=== PATIENT | male | born 1985 | race African-American/Black ===

== ENCOUNTER → 2020-02-08 | Outpatient (CLI) | payer OTHER ==
--- NOTE | 2020-02-08 15:40 | RAD ---
EXAM: CT Abdomen and Pelvis without IV contrast CLINICAL HISTORY: HX DOUBLE MESH HERNIA REPAIR ABD PAIN COMPARISON: none TECHNIQUE: Helical CT of the abdomen and pelvis was performed without the administration of IV contrast. Axial, coronal and sagittal reformatted images were generated. ---PQRS compliance statement - One or more of the following individualized dose reduction techniques were utilized for this study: 1. Automated exposure control 2. Adjustment of the mA and/or kV according to patient size 3. Use of iterative reconstruction technique--- FINDINGS: Lack of intravenous contrast limits evaluation of solid organs, vasculature, and lymph nodes. Lower chest: Lung bases are clear. Abdomen and pelvis: Liver and biliary system: Hepatic hypoattenuation likely fatty liver. Gallbladder is normal. No biliary ductal dilatation. Spleen: Unremarkable Pancreas: Unremarkable Adrenal glands: Unremarkable Kidneys: No renal tract calculus. No hydronephrosis. No hydroureter. Bladder wall thickening likely cystitis. Lymph nodes/retroperitoneum: No abdominal or pelvic lymphadenopathy. Vessels: Aorta is normal in caliber. Bowel/Peritoneal cavity: Moderate to large volume colonic stool content is seen. No small or large bowel dilatation. No bowel obstruction. No abdominal or pelvic ascites. Abdominal wall: Infiltration and metallic densities are seen along the right inguinal canal from prior surgical change. Bladder: Mild bladder wall thickening may represent cystitis. Bones: No aggressive osseous lesion is seen. IMPRESSION: 1. Postsurgical changes in the right inguinal region likely from prior hernia repair. No associated right inguinal hernia is identified. 2. No small or large bowel dilatation to suggest bowel obstruction. 3. Hepatic hypoattenuation, likely fatty liver. Electronically signed by: Ney Francisco MD (02/08/2020 3:37 PM) [id number]
== END ==
LOC: EDUNIT# 13:00 → CT 13:09
PROVIDERS: ATTEND Nurse Practitioner Family
DX: R10.9 Unspecified abdominal pain (principal); Z87.19 Personal history of other diseases of the digestive system
CPT/HCPCS: 74176

== ENCOUNTER → 2020-02-08 | Outpatient (CLI) | payer OTHER | LOC: LAB 13:22 | PROVIDERS: ATTEND Nurse Anesthetist, Certified Registered | DX: Z01.818 Encounter for other preprocedural examination (principal); K21.9 Gastro-esophageal reflux disease without esophagitis; Z20.828 Contact with and (suspected) exposure to other viral communicable diseases | CPT/HCPCS: U0003 ==

== ENCOUNTER → 2020-02-14 | Day surgery (SDC) | payer OTHER ==
[~2020-02-14] MED LIST: ALBU2.5V8 IH; IBUP400T99 PO; IPRATRPIUM/ALBUTEROL 0.5/2.5MG 3 ML NEBU. NEB PRN; IV RINGERS SOLUTION,LACTATED 1,000 ML IV SCH; LIDOCAINE 2% PF 5 ML VIAL. ONE; LOSA1TAB22 PO; MIDAZOLAM HCL PF 2 MG/2 ML VIAL. IV ONE; ONDANSETRON PF 4 MG/2 ML VIAL. IV PRN; PANT40TA6 PO; PROPOFOL 10,000 MCG/ML (20ML) VIAL IV ONE; SERT50TA PO
[2020-02-14 11:14] VITALS: BP 161/87
--- NOTE | 2020-02-16 20:05 | PATHOLOGY ---
[facility] Accession Number: [id number] . 01 Material submitted: . PART A: stomach - GASTRIC BIOPSY FOR H. PYLORI PART B: esophagus - DISTAL ESOPHAGUS FOR REFLUX. Modifiers: distal . 01 Clinical history: . GERD, HEMORRHOIDS . 02 Diagnosis: A. Gastric biopsy: - Congestion and slight superficial chronic inflammation. . B. Esophageal biopsies, distal esophagus: - Segments of hyperplastic esophageal mucosa showing focal erosion and acute and chronic inflammation, and segments of gastric mucosa showing focal edema and mild chronic inflammation. (JPM:[facility] 02/16/2020) [facility] 02/16/2020 0947 [facility] . 02 Comment: Sections of the gastric biopsy reveal gastric body mucosa showing congestion and slight superficial chronic inflammation. A properly controlled immunoperoxidase stain for Helicobacter is negative for Helicobacter organisms. . Sections of the distal esophageal biopsy reveal segments of hyperplastic squamous esophageal mucosa showing focal erosion and acute and chronic inflammation, consistent with reflux esophagitis. There are also segments of gastric mucosa showing focal edema and mild chronic inflammation. There is no evidence of Denny's change, dysplasia, or malignancy. (JPM:[facility] 02/16/2020) . Special stain performed: Immunoperoxidase stain for Helicobacter on A1. . 02 Electronically signed: . Steve Magaña MD, Pathologist NPI- [id number] . 01 Gross description: . A. The specimen is received in formalin, labeled "Abimael, Wing, gastric" and consists of a fragment of pink-shaffer tissue measuring 0.6 x 0.2 cm which is entirely submitted in A1. . B. The specimen is received in formalin, labeled "Abimael, Wing, distal esophagus" and consists of 4 fragments of shaffer tissue measuring between 0.2 x 0.2 cm and 0.6 x 0.2 cm which are entirely submitted in B1. (SDY; 02/15/2020) [facility] 02/15/2020 1433 Local . 02 Pathologist provided ICD-10: K31.89, K29.50, K20.90, K22.10 . 02 CPT . 653500, 641204, C42211 Specimen Comment: A courtesy copy of this report has been sent to [phone], [phone] Specimen Comment: [id number] Specimen Comment: Report sent to / DR MIKE Performed at: 01 [facility] [address], [place] [id number] MD Twin Chirinos MD Phone: [phone] Performed at: 02 [facility] [address] [place], [place] [id number] MD Steve Magaña MD Phone: [phone]
== END | disposition home or self-care (01) ==
LOC: SURG 09:16
PROVIDERS: ATTEND Emergency Medicine
DX: K92.1 Melena (principal); R10.9 Unspecified abdominal pain; K21.00 Gastro-esophageal reflux disease with esophagitis, without bleeding; R68.81 Early satiety; J32.1 Chronic frontal sinusitis; K64.8 Other hemorrhoids; K44.9 Diaphragmatic hernia without obstruction or gangrene; K31.89 Other diseases of stomach and duodenum; K29.50 Unspecified chronic gastritis without bleeding; K22.10 Ulcer of esophagus without bleeding; Z80.0 Family history of malignant neoplasm of digestive organs; Z98.0 Intestinal bypass and anastomosis status; Z79.899 Other long term (current) drug therapy; Z87.19 Personal history of other diseases of the digestive system
CPT/HCPCS: 43239; 45378; 88305; 88342; J2001; J2704; J7120

== ENCOUNTER → 2020-03-19 | Outpatient (CLI) | payer OTHER ==
[2020-02-14 11:14] VITALS: BP 161/87
[~2020-03-19] MED LIST changes: -IPRATRPIUM/ALBUTEROL 0.5/2.5MG 3 ML NEBU. NEB PRN; -IV RINGERS SOLUTION,LACTATED 1,000 ML IV SCH; -LIDOCAINE 2% PF 5 ML VIAL. ONE; -MIDAZOLAM HCL PF 2 MG/2 ML VIAL. IV ONE; -ONDANSETRON PF 4 MG/2 ML VIAL. IV PRN; -PROPOFOL 10,000 MCG/ML (20ML) VIAL IV ONE
--- NOTE | 2020-03-19 13:17 | RAD ---
EXAM: Nuclear gastric emptying scan. HISTORY: Nausea. Early satiety. COMPARISON: None. TECHNIQUE: Serial static images were obtained over the stomach following oral administration of 2 mCi 99m-Tc sulfur colloid. FINDINGS: The stomach empties into the small bowel without evidence of reflux in the area of the esop hagus. There is 51 percent retained tracer activity within stomach at one hour (normal 34.8 percent t o 91 percent). There is 15 percent retained tracer activity within stomach at 2 hours (normal 2.7 per cent to 60 percent). There is 2 percent retained tracer activity within stomach at 3 hours (normal 0. 5 percent to 28 percent). There is 0 percent retained tracer activity within stomach at 4 hours (norm al 0.0 percent to 10 percent). The estimated time for half emptying of gastric contents, i.e. 'gastric emptying time' is 62 minutes (normal is 66 +/- 22 minutes). IMPRESSION: Normal gastric emptying scan. Electronically signed by: Karli Fernandez MD (03/19/2020 1:15 PM) [id number]
== END ==
LOC: NM 08:03
PROVIDERS: ATTEND Emergency Medicine
DX: K29.60 Other gastritis without bleeding (principal); K44.9 Diaphragmatic hernia without obstruction or gangrene; K21.00 Gastro-esophageal reflux disease with esophagitis, without bleeding; R68.81 Early satiety; J31.2 Chronic pharyngitis
CPT/HCPCS: 78264; A9541

== ENCOUNTER 2020-06-17 16:50 | Emergency (ER) | payer OTHER ==
[~2020-06-17] VITALS: Ht 188 cm; Wt 98.4 kg
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
--- NOTE | 2020-06-17 17:58 | EKG ---
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
[2020-06-17 18:04] LABS: BASO % 1 % (0-3); EOS % 1 % (0-3); HEMOGLOBIN 13.3 g/dL (13.0-17.5); LYMPH # 1.4 x10^3/uL (1.0-4.8); LYMPH % 36 % (24-48); MEAN CORPUSCULAR HEMOGLOBIN 29 pg (25-35); MEAN CORPUSCULAR HGB CONC 33 g/dL (31-37); MEAN CORPUSCULAR VOLUME 91 fL (79-100); MONO # 0.3 x10^3/uL (0.0-1.1); MONO % 9 % (0-9); NEUT # 2.1 x10^3uL (1.8-7.7); NEUT % 54 % (31-73); PLATELET COUNT 261 x10^3/uL (140-400); RED BLOOD COUNT 4.53 x10^6/uL (4.30-5.70); RED CELL DISTRIBUTION WIDTH 14.4 % (11.5-14.5); WHITE BLOOD COUNT 3.8 x10^3/uL (4.0-11.0)
[2020-06-17 18:06] LABS: CALCIUM 8.1 mg/dL (8.5-10.1); CREATININE 1.3 mg/dL (0.7-1.3); GFR 75.2; POTASSIUM 3.7 mmol/L (3.5-5.1)
[2020-06-17 18:11] LABS: AMPHETAMINE/METHAMPHETAMINE NEG (NEG); BARBITURATES NEG (NEG); BENZODIAZEPINES NEG (NEG); CANNABINOIDS NEG (NEG); COCAINE NEG (NEG); METHADONE NEG (NEG); OPIATES NEG (NEG); PHENCYCLIDINE NEG (NEG)
[2020-06-17] MEDS ORDERED: MVI, ADULT NO.4 WITH VIT K 10 ML, FOLIC ACID INJ 1 MG, THIAMINE INJ 100 MG in IV RINGER... IV ONE (20:00)
[2020-06-17] MEDS ORDERED: IV RINGERS SOLUTION,LACTATED 1,000 ML IV SCH (20:00)
[2020-06-17] MEDS ORDERED: IV RINGERS SOLUTION,LACTATED 1,000 ML IV ONE (21:00)
[2020-06-17] MEDS ORDERED: FOLIC ACID 1 MG TABLET PO ONE (21:15)
[2020-06-17] MEDS ORDERED: THIAMINE 100 MG TABLET. PO ONE (21:15)
[2020-06-17] MEDS: MULTIVITAMIN with MINERAL TABLET. PO SCH (21:53)
[2020-06-18] MEDS: MULTIVITAMIN with MINERAL TABLET. PO SCH (07:49)
[2020-06-18] MEDS ORDERED: chlordiazePOXIDE HCL 25 MG CAPSULE PO ONE (08:00)
[2020-06-18 09:43] VITALS: BP 166/75
== END 2020-06-18 09:50 | disposition short-term general hospital (02) ==
LOC: ER 16:50 → EEVIPCON 16:50 → ER 06-18 09:50
DX: R45.851 Suicidal ideations (principal); F32.9 Major depressive disorder, single episode, unspecified; F41.9 Anxiety disorder, unspecified; F10.20 Alcohol dependence, uncomplicated; Z20.822 Contact with and (suspected) exposure to COVID-19; Y90.8 Blood alcohol level of 240 mg/100 ml or more
CPT/HCPCS: 36415; 80048; 80307; 85025; 87426; 93005; 96360; 99285; G0480; J7120; U0003

== ENCOUNTER → 2020-07-02 | Outpatient (CLI) | payer OTHER ==
[2020-06-18 09:43] VITALS: BP 166/75
--- NOTE | 2020-07-02 11:26 | RAD ---
EXAM: RIGHT UPPER QUADRANT ULTRASOUND. HISTORY: Right upper quadrant pain. COMPARISON: 02/08/2020. FINDINGS: Sonographic evaluation of the right upper quadrant was performed. The liver appears normal in parenchymal echotexture. There are no focal lesions. The gallbladder is fully decompressed. This simulates wall thickening, but no true wall thickening, s tones or pericholecystic fluid is identified. There is no sonographic Coy sign. The common duct m easures 5 mm. The visualized portions of the head of the pancreas reveal no abnormality. The right kidney measures 10.1 cm. Cortical thickness and echogenicity are preserved. There is no hyd ronephrosis. The visualized portions of the abdominal aorta and inferior vena cava are grossly patent and normal i n caliber. IMPRESSION: 1. The gallbladder is fully decompressed, but otherwise unremarkable. No cause for pain is identified sonographically. Electronically signed by: Hany Robb MD (07/02/2020 11:23 AM) [id number]
[2020-07-02 21:09] LABS: AFPT MARKER 4.2 ng/mL (0.0-8.3)
== END ==
LOC: US 07:48
PROVIDERS: ATTEND Emergency Medicine
DX: R10.11 Right upper quadrant pain (principal); R94.5 Abnormal results of liver function studies
CPT/HCPCS: 36415; 76705; 82103; 82105

== ENCOUNTER → 2020-07-20 | Outpatient (CLI) | payer OTHER ==
[~2020-07-20] MED LIST changes: +SINCALIDE 1.91 MCG in IV NORMAL SALINE 50ML 30 ML IV ONE
--- NOTE | 2020-07-20 15:09 | RAD ---
HEPATOBILIARY SCAN WITH EJECTION FRACTION History: Reason: / Spl. Instructions: / History: Abdominal pain, nausea and vomiting times several months. COMPARISON: Complete abdominal ultrasound July 02, 2020. Procedure: Serial static images are obtained of the liver and biliary system in the frontal projectio n following IV administration of 5 mCi of Technetium 99m Choletec. After filling of the gallbladder , 1.9 mcg of sincalide were infused over 30 minutes and dynamic imaging continued over this period. T he gallbladder ejection fraction was calculated. Findings: There is prompt hepatic clearance of tracer from the blood pool. There is homogeneous distribution th roughout the liver. There is normal filling of the gallbladder and normal emptying into the biliary s ystem. Tracer is not seen in small bowel until the sincalide infusion, a normal variant. The gallblad schuyler ejection fraction measures 24% (normal gallbladder EF is 35% or greater). IMPRESSION: 1. The cystic duct and common bile duct are patent. Negative for acute cholecystitis. 2. The gallbladder ejection fraction is abnormal measuring 24 %. Findings may indicate gallbladder dy skinesia or chronic cholecystitis. Electronically signed by: Saud Raymond MD (07/20/2020 3:06 PM) [id number]
== END ==
LOC: NM 09:22
PROVIDERS: ATTEND Internal Medicine Gastroenterology
DX: R11.2 Nausea with vomiting, unspecified (principal); R10.11 Right upper quadrant pain
CPT/HCPCS: 78227; A9537; J2805

== ENCOUNTER → 2020-07-26 | Outpatient (CLI) | payer OTHER ==
[~2020-07-26] MED LIST changes: -SINCALIDE 1.91 MCG in IV NORMAL SALINE 50ML 30 ML IV ONE
[2020-07-26 10:52] LABS: ALBUMIN 3.8 g/dL (3.4-5.0); ALBUMIN/GLOBULIN RATIO 0.8 (1.0-1.7); CALCIUM 8.6 mg/dL (8.5-10.1); CREATININE 1.3 mg/dL (0.7-1.3); GFR 75.2; POTASSIUM 4.2 mmol/L (3.5-5.1); TOTAL BILIRUBIN 0.3 mg/dL (0.2-1.0); TOTAL PROTEIN 8.4 g/dL (6.4-8.2)
[2020-07-26 21:10] LABS: THYROXINE 4.4 ug/dL (4.5-12.0)
[2020-07-27 01:12] LABS: HEMOGLOBIN A1C 5.9 % (4.8-5.6)
[2020-07-27 08:13] LABS: CERULOPLASMIN 28.8 mg/dL (16.0-31.0)
[2020-07-27 19:49] LABS: THYROID STIM HORMONE (TSH) 1.545 uIU/mL (0.358-3.740)
[2020-07-27 20:11] LABS: ANA INTERP Negative (.)
== END ==
LOC: LAB 09:19
PROVIDERS: ATTEND Emergency Medicine
DX: K64.8 Other hemorrhoids (principal); R11.2 Nausea with vomiting, unspecified; R79.89 Other specified abnormal findings of blood chemistry
CPT/HCPCS: 36415; 80053; 80061; 82390; 82728; 83036; 83516; 84436; 84443; 85610; 85730; 86038; 86705; 86709; 86803; 87340

== ENCOUNTER 2021-05-08 11:40 | Emergency (ER) | payer OTHER ==
[~2021-05-08] VITALS: Ht 188 cm; Wt 96.3 kg
[2021-05-08 12:30] VITALS: BP 166/79
--- NOTE | 2021-05-08 12:54 | PHYS DOC ---
Past History Past Medical History: Alcoholism, Anxiety, Depression, Hypertension Past Surgical History: No Surgical History, Other Alcohol Use: Heavy General Adult EDM: Chief Complaint: HEADACHE HPI: HPI: Patient is a 36-year-old male who presents today with headache. Patient states his headache started 2 days ago, he thinks it could be related to his hypertension, his current blood pressure is 171/89. Patient states that 6 weeks ago he was started on treatment with hydralazine for hypertensive management, he states he has not had follow-up with that, he states he does not check his blood pressure on a regular basis and does not know what his blood pressures have been running. Patient denies chest pain, shortness of air, or fever or chills. Patient does state that he has some dizziness at times, he denies light sensitivity, does state that he has nausea also. Review of Systems: Review of Systems: Constitutional: Denies fever or chills Eyes: Denies change in visual acuity HENT: Denies nasal congestion or sore throat Respiratory: Denies cough or shortness of breath Cardiovascular: Denies chest pain or edema GI: Nausea denies abdominal pain, vomiting, bloody stools or diarrhea : Denies dysuria Musculoskeletal: Denies back pain or joint pain Integument: Denies rash Neurologic: Headache and dizziness denies focal weakness or sensory changes Endocrine: Denies polyuria or polydipsia Lymphatic: Denies swollen glands Psychiatric: Denies depression or anxiety Current Medications: Current Meds: Current Medications Medications (Trade) Dose Ordered Sig/Enrique Start Time Stop Time Status Last Admin Dose Admin Diphenhydramine HCl (Benadryl) 25 mg 1X ONCE 05/08/21 13:00 05/08/21 13:01 UNV Ketorolac Tromethamine (Toradol 30mg Vial) 30 mg 1X ONCE 05/08/21 13:00 05/08/21 13:01 UNV Prochlorperazine Edisylate (Compazine) 10 mg 1X ONCE 05/08/21 13:00 05/08/21 13:01 UNV Sodium Chloride 1,000 ml @ 1,000 mls/hr 1X ONCE 05/08/21 13:00 05/08/21 13:59 UNV Allergies: Allergies: Allergies Coded Allergies Type Severity Reaction Last Updated Verified No Known Drug Allergies 02/14/20 No Physical Exam: PE: Constitutional: Well developed, well nourished, no acute distress, non-toxic appearance. [] HENT: Normocephalic, atraumatic, bilateral external ears normal, oropharynx moist, no oral exudates, nose normal. [] Eyes: PERRLA, EOMI, conjunctiva normal, no discharge. [] Neck: Normal range of motion, no tenderness, supple, no stridor. [] Cardiovascular:Heart rate regular rhythm, no murmur [] Lungs & Thorax: Bilateral breath sounds clear to auscultation [] Abdomen: Bowel sounds normal, soft, no tenderness, no masses, no pulsatile masses. [] Skin: Warm, dry, no erythema, no rash. [] Back: No tenderness, no CVA tenderness. [] Extremities: No tenderness, no cyanosis, no clubbing, ROM intact, no edema. [] Neurologic: Alert and oriented X 3, normal motor function, normal sensory function, no focal deficits noted. [] Psychologic: Affect normal, judgement normal, mood normal. [] Current Patient Data: Vital Signs: Vital Signs Date Time Temp Pulse Resp B/P (MAP) Pulse Ox O2 Delivery O2 Flow Rate FiO2 05/08/21 12:30 97.6 65 16 166/79 (108) 100 Room Air EKG: EKG: [] Radiology/Procedures: Radiology/Procedures: REASON: HEADACHE X 2 DAYS PROCEDURE: CT HEAD WO CONTRAST EXAM: CT head without contrast INDICATION: Headache for 2 days COMPARISON: None TECHNIQUE: Axial CT imaging through the head without intravenous contrast. Sagittal and coronal reformats were obtained. One or more of the following individualized dose reduction techniques were utilized for this examination: 1. Automated exposure control 2. Adjustment of the mA and/or kV according to patient size 3. Use of iterative reconstruction technique. FINDINGS: The ventricles and sulci are normal. Chanel-white matter differentiation is maintained. There is no intracranial hemorrhage, acute infarct, or mass lesion. Basal cisterns are clear. The skull and scalp are intact. Paranasal sinuses and mastoid air cells are clear. Globes and orbits are intact. IMPRESSION: No acute intracranial abnormality. Electronically signed by: Marlen Guerrero MD (05/08/2021 1:17 PM) [id number] [] Heart Score: C/O Chest Pain: N/A Risk Factors: Risk Factors: DM, Current or recent (<one month) smoker, HTN, HLP, family history of CAD, obesity. Risk Scores: Score 0 - 3: 2.5% MACE over next 6 weeks - Discharge Home Score 4 - 6: 20.3% MACE over next 6 weeks - Admit for Clinical Observation Score 7 - 10: 72.7% MACE over next 6 weeks - Early Invasive Strategies Course & Med Decision Making: Course & Med Decision Making Pertinent Labs and Imaging studies reviewed. (See chart for details) 1355 patient states headache has improved his pain is now 1-2 out of 10, reviewed radiological results with patient did inform him no acute processes were seen. Since his blood pressure is currently being managed on an outpatient basis with his primary care physiciaN, did inform patient to follow-up with his primary care for further medication adjustments with his hypertension, also advised patient to check his blood pressure on a daily basis 1 hour after taking his medications to see if it is working. Patient verbalized understanding of this agreeable to the plan of care Gerber Disclaimer: Gerber Disclaimer: This electronic medical record was generated, in whole or in part, using a voice recognition dictation system. Departure Departure: Impression: Primary Impression: Headache Qualified Codes: R51.9 - Headache, unspecified Disposition: HOME / SELF CARE / HOMELESS Condition: STABLE Referrals: YA RODRIGUEZ- (PCP) Patient Instructions: General Headache Without Cause Additional Instructions: Continue to take your home medications as prescribed by your primary care physician Follow-up with your primary care physician in the next 1 to 2 days for further management of your blood pressure Take your blood pressure on a daily basis 1 hour after taking her medications record those readings and take those readings to her primary care. Return to the emergency department if you discover a facial droop, inability to use 1 side your body, any slurred speech, or any loss of vision. DONNELL VALDEZ APRN May 08, 2021 12:54
[2021-05-08] MEDS ORDERED: diphenhydrAMINE 50 MG/ML VIAL IVP ONE (13:00)
[2021-05-08] MEDS ORDERED: IV NORMAL SALINE 1,000ML 1,000 ML IV ONE (13:00)
[2021-05-08] MEDS ORDERED: KETOROLAC 30 MG/ML VIAL. IVP ONE (13:00)
[2021-05-08] MEDS ORDERED: PROCHLORPERAZINE 10 MG/2 ML VIAL. IV ONE (13:00)
--- NOTE | 2021-05-08 13:19 | RAD ---
EXAM: CT head without contrast INDICATION: Headache for 2 days COMPARISON: None TECHNIQUE: Axial CT imaging through the head without intravenous contrast. Sagittal and coronal refor mats were obtained. One or more of the following individualized dose reduction techniques were utilized for this examinat ion: 1. Automated exposure control 2. Adjustment of the mA and/or kV according to patient size 3. Use of iterative reconstruction technique. FINDINGS: The ventricles and sulci are normal. Chanel-white matter differentiation is maintained. There is no in tracranial hemorrhage, acute infarct, or mass lesion. Basal cisterns are clear. The skull and scalp are intact. Paranasal sinuses and mastoid air cells are clear. Globes and orbits are intact. IMPRESSION: No acute intracranial abnormality. Electronically signed by: Marlen Guerrero MD (05/08/2021 1:17 PM) [id number]
== END 2021-05-08 14:34 | disposition home or self-care (01) ==
LOC: ER 11:40
DX: R51.9 Headache, unspecified (principal); R42 Dizziness and giddiness; R11.0 Nausea; F10.20 Alcohol dependence, uncomplicated; I10 Essential (primary) hypertension; F41.9 Anxiety disorder, unspecified; F32.9 Major depressive disorder, single episode, unspecified; Y90.9 Presence of alcohol in blood, level not specified
CPT/HCPCS: 70450; 96361; 96374; 96375; 99284; J0780; J1200; J1885; J7030

== ENCOUNTER 2021-05-31 22:05 | Emergency (ER) | payer OTHER ==
[~2021-05-31] VITALS: Ht 188 cm; Wt 96.3 kg
--- NOTE | 2021-05-31 23:24 | PHYS DOC ---
Past History Past Medical History: Alcoholism, Anxiety, Depression, Hypertension Additional Past Medical Histor: INSOMNIA Past Surgical History: Cholecystectomy, Other Additional Past Surgical Histo: HERNIA, HEMORRHOIDECTOMY Alcohol Use: Heavy Adult General Chief Complaint Chief Complaint: OTHER COMPLAINTS HPI HPI Patient is a 36-year-old male, in the who presents with a chief complaint of easy bruising. States over the last several months he has had an issue with anemia and his primary care physician is currently investigating the etiology with laboratory analysis. Denies any recent travels, traumas, illness, fevers, chest pain, shortness of breath, abdominal pain, nausea, vomiting, diarrhea. Denies any hematuria, blood in the stool or hematemesis/hemoptysis. Denies any known family history of coagulation disorders. Did state that his primary care physician started him on iron pills. Review of Systems Review of Systems Review of systems otherwise unremarkable except noted in HPI Allergies Allergies Allergies Coded Allergies Type Severity Reaction Last Updated Verified No Known Drug Allergies 02/14/20 No Physical Exam Physical Exam Constitutional: Well developed, well nourished, no acute distress, non-toxic appearance. [] HENT: Normocephalic, atraumatic, bilateral external ears normal, oropharynx moist, no oral exudates, nose normal. [] Eyes: conjunctiva normal, no discharge. [] Neck: Normal range of motion, no tenderness, supple, no stridor. [] Cardiovascular:Heart rate regular rhythm, no murmur [] Lungs & Thorax: Bilateral breath sounds clear to auscultation [] Abdomen: soft, no tenderness, no masses, no pulsatile masses. [] Skin: Warm, dry, no erythema, no rash, capillary refill 3 to 5 seconds. [] Back: no CVA tenderness. [] Extremities: No tenderness, no cyanosis, no clubbing, ROM intact, no edema. [] Neurologic: Alert and oriented X 3, normal motor function, normal sensory function, able to sit, stand and walk without issue no focal deficits noted. [] Psychologic: Affect normal, judgement normal, mood normal. [] Current Patient Data Vital Signs Vital Signs Date Time Temp Pulse Resp B/P (MAP) Pulse Ox O2 Delivery O2 Flow Rate FiO2 05/31/21 23:16 98.1 64 18 179/92 (121) 98 Room Air EKG EKG [] Radiology/Procedures Radiology/Procedures [] Heart Score C/O Chest Pain: No Risk Factors: Risk Factors: DM, Current or recent (<one month) smoker, HTN, HLP, family history of CAD, obesity. Risk Scores: Risk Factors: DM, Current or recent (<one month) smoker, HTN, HLP, family history of CAD, obesity. Course & Med Decision Making Course & Med Decision Making Patient is a 36-year-old male who presents with a chief complaint of easy bruising, and recent anemia on iron pills Vital signs notable for hypertension. Physical exam noted above. Laboratory analysis not concerning, however hemoglobin a little low MCV at 79 which goes along with patient's diagnosis of iron deficiency Discussed all findings with patient. Advised to follow-up first thing Thursday with primary care physician. Advised to continue taking his iron pills as prescribed. Gave return precautions to the ED. Patient grateful, verbalized understanding and agreed with plan of discharge. [] Dragon Disclaimer Dragon Disclaimer This electronic medical record was generated, in whole or in part, using a voice recognition dictation system. Departure Departure: Impression: Primary Impression: Anemia Disposition: HOME / SELF CARE / HOMELESS Condition: STABLE Referrals: YA RODRIGUEZ-VERONA (PCP) Patient Instructions: Anemia, FAQs, Iron Deficiency Anemia Additional Instructions: Thank you for coming into the emergency department tonight and allowing us to take care of you. Please read the attached information carefully to go over things we discussed. Please take all of your medications including your iron pills as instructed. Please also take a multivitamin daily and eat at least 3 nutritious meals daily. Please do not drink alcohol as this can affect your blood levels as well. Please follow-up on Thursday first thing with your primary care physician update on ED visit and return to the ED with new or concerning symptoms as discussed. NINFA LUGO MD May 31, 2021 23:24
[2021-06-01 00:12] LABS: GFR 101.2; POTASSIUM 4.3 mmol/L (3.5-5.1)
[2021-06-01 00:19] LABS: BASO # 0.1 x10^3/uL (0.0-0.2); BASO % 1 % (0-3); EOS % 0 % (0-3); HEMATOCRIT 36.3 % (39.0-53.0); HEMOGLOBIN 11.4 g/dL (13.0-17.5); LYMPH # 1.7 x10^3/uL (1.0-4.8); LYMPH % 37 % (24-48); MEAN CORPUSCULAR HEMOGLOBIN 25 pg (25-35); MEAN CORPUSCULAR HGB CONC 31 g/dL (31-37); MEAN CORPUSCULAR VOLUME 79 fL (79-100); MONO # 0.3 x10^3/uL (0.0-1.1); MONO % 7 % (0-9); NEUT # 2.5 x10^3uL (1.8-7.7); NEUT % 55 % (31-73); PLATELET COUNT 219 x10^3/uL (140-400); RED BLOOD COUNT 4.61 x10^6/uL (4.30-5.70); RED CELL DISTRIBUTION WIDTH 28.1 % (11.5-14.5); WHITE BLOOD COUNT 4.5 x10^3/uL (4.0-11.0)
[2021-06-01 00:37] VITALS: BP 159/79
[2021-06-01 02:36] LABS: PLT ESTIMATE ADEQUATE (ADEQUATE)
[2021-06-01 02:38] LABS: ANISOCYTOSIS PRESENT; HYPOCHROMIA PRESENT; MICROCYTOSIS PRESENT
== END 2021-06-01 00:47 | disposition home or self-care (01) ==
LOC: ER 22:05
DX: D64.9 Anemia, unspecified (principal); F10.20 Alcohol dependence, uncomplicated; F41.9 Anxiety disorder, unspecified; F32.9 Major depressive disorder, single episode, unspecified; I10 Essential (primary) hypertension; Y90.9 Presence of alcohol in blood, level not specified
CPT/HCPCS: 36415; 80048; 85025; 86850; 86900; 86901; 99283

== ENCOUNTER 2021-07-09 11:39 | Emergency (ER) | payer OTHER ==
[~2021-07-09] VITALS: Ht 188 cm; Wt 96.3 kg
[2021-07-09] MEDS: IV NORMAL SALINE 1,000ML 1,000 ML IV ONE (12:30)
[2021-07-09 12:43] LABS: BASO # 0.1 x10^3/uL (0.0-0.2); BASO % 1 % (0-3); EOS % 1 % (0-3); HEMATOCRIT 38.8 % (39.0-53.0); HEMOGLOBIN 12.6 g/dL (13.0-17.5); LYMPH # 1.3 x10^3/uL (1.0-4.8); LYMPH % 24 % (24-48); MEAN CORPUSCULAR HEMOGLOBIN 27 pg (25-35); MEAN CORPUSCULAR HGB CONC 33 g/dL (31-37); MEAN CORPUSCULAR VOLUME 84 fL (79-100); MONO # 0.3 x10^3/uL (0.0-1.1); MONO % 6 % (0-9); NEUT # 3.6 x10^3uL (1.8-7.7); NEUT % 68 % (31-73); PLATELET COUNT 377 x10^3/uL (140-400); RED BLOOD COUNT 4.63 x10^6/uL (4.30-5.70); RED CELL DISTRIBUTION WIDTH 26.1 % (11.5-14.5); WHITE BLOOD COUNT 5.3 x10^3/uL (4.0-11.0)
[2021-07-09 13:01] LABS: BACTERIA,URINE 0 /HPF (0-FEW); CLARITY,URINE CLEAR; COLOR,URINE YELLOW; GLUCOSE,URINE NEG (NEG); NITRITE,URINE NEG (NEG); RBC,URINE RARE /HPF (0-2); SQUAMOUS EPITHELIAL CELL,UR FEW /LPF; UROBILINOGEN,URINE 0.2 mg/dL (0.2 mg/dL); WBC,URINE RARE /HPF (0-4)
[2021-07-09 13:01] LABS: CALCIUM 8.1 mg/dL (8.5-10.1); CREATININE 1.4 mg/dL (0.7-1.3); GFR 68.6; POTASSIUM 4.1 mmol/L (3.5-5.1)
--- NOTE | 2021-07-09 13:05 | RAD ---
Exam Date: 07/09/2021 12:[address] ABDOMEN+PELVIS WO Indication: Reason: low abdominal pain x1wk, HX DEDE. / Spl. Instructions: / History: . TECHNIQUE: CT examination of the abdomen and pelvis was performed without oral or intravenous contra st. One or more of the following dose reduction techniques were utilized: *Automated exposure control (AEC) *Adjustment of mA and/or kV according to patient size *Use of iterative reconstruction technique *CT scan done according to ALARA, or ALARA/IMAGE GENTLY COMPARISON: February 08, 2020 FINDINGS: Motion artifact limits evaluation slightly. The visualized lung bases are clear. Reported prior cholecystectomy. The liver, spleen, pancreas, and adrenal glands are normal. The kidneys are normal bilaterally. No hydronephrosis or hydroureter is seen. No urinary tract calc carole are seen. Urinary bladder is normal in appearance. There is no bowel obstruction or inflammation. No evidence for acute appendicitis. The colon is pos itioned predominantly on the right side of the abdomen, though this appearance is unchanged since . No significant atherosclerotic calcifications are seen. No lymphadenopathy or ascites is seen. Osseous structures are intact. IMPRESSION: No acute abdominal pathology identified. Normal appearance of the kidneys and bladder. No hydronephrosis or hydroureter. No urinary tract ca lculi. Electronically signed by: Josemanuel Olsen MD (07/09/2021 1:03 PM) [id number]
[2021-07-09 13:07] LABS: ALBUMIN 3.5 g/dL (3.4-5.0); ALBUMIN/GLOBULIN RATIO 0.8 (1.0-1.7); TOTAL BILIRUBIN 0.2 mg/dL (0.2-1.0); TOTAL PROTEIN 7.7 g/dL (6.4-8.2)
[2021-07-09 13:54] LABS: HYPOCHROMIA PRESENT; TARGET CELLS PRESENT
[2021-07-09 13:55] LABS: ANISOCYTOSIS PRESENT; MICROCYTOSIS PRESENT; OVALOCYTES PRESENT; POLYCHROMASIA PRESENT
[2021-07-09 13:57] LABS: SCHISTOCYTES FEW; TEAR DROP CELLS PRESENT
[2021-07-09 14:00] LABS: PLT ESTIMATE INCREASED (ADEQUATE)
--- NOTE | 2021-07-09 14:10 | PHYS DOC ---
Past History Past Medical History: Alcoholism, Anxiety, Depression, Hypertension Additional Past Medical Histor: INSOMNIA Past Surgical History: Cholecystectomy, Other Additional Past Surgical Histo: HERNIA, HEMORRHOIDECTOMY Alcohol Use: Heavy General Adult EDM: Chief Complaint: ABDOMINAL PAIN HPI: HPI: Patient is a 36-year-old male presents with abdominal pain. 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 Patient states he was drinking alcohol all night. Patient was reports drinking beer and wine. Patient was complaining that his stomach hurt. Generalized abdominal pain. Denies nausea/vomiting/diarrhea. Denies taking anything for pain. Unknown last bowel movement. History of hypertension, alcoholism, anxiety and depression. Review of Systems: Review of Systems: ROS At least 10 ROS systems have been reviewed and are negative except as documented in the HPI. General: Negative except as outlined in HPI above. Skin: Negative except as outlined in HPI above. HEENT: Negative except as outlined in HPI above. Neck: Negative except as outlined in HPI above. Respiratory: Negative except as outlined in HPI above.. Cardiovascular: Negative except as outlined in HPI above. Abdomen: Negative except as outlined in HPI above. : Negative except as outlined in HPI above. Back/MSK: Negative except as outlined in HPI above. Neuro: Negative except as outlined in HPI above. Psych: Negative except as outlined in HPI above. Current Medications: Current Meds: Current Medications Medications (Trade) Dose Ordered Sig/Enrique Start Time Stop Time Status Last Admin Dose Admin Fentanyl Citrate (Fentanyl 2ml Vial) 50 mcg 1X ONCE 07/09/21 12:00 07/09/21 12:01 DC 07/09/21 12:30 50 MCG Sodium Chloride 1,000 ml @ 1,000 mls/hr 1X ONCE 07/09/21 12:00 07/09/21 12:59 DC 07/09/21 12:30 1,000 MLS/HR Allergies: Allergies: Allergies Coded Allergies Type Severity Reaction Last Updated Verified No Known Drug Allergies 02/14/20 No Physical Exam: PE: Constitutional: Well developed, well nourished, no acute distress, patient appears intoxicated HENT: Normocephalic, atraumatic, bilateral external ears normal, oropharynx moist, no oral exudates, nose normal. [] Eyes: PERRLA, EOMI, conjunctiva normal, no discharge. [] Neck: Normal range of motion, no tenderness, supple, no stridor. [] Cardiovascular:Heart rate regular rhythm, no murmur [] Lungs & Thorax: Bilateral breath sounds clear to auscultation [] Abdomen: Bowel sounds normal, soft, generalized tenderness Skin: Warm, dry, no erythema, no rash. [] Back: No tenderness, no CVA tenderness. [] Extremities: No tenderness, no cyanosis, no clubbing, ROM intact, no edema. [] Neurologic: Alert and oriented X 3, normal motor function, normal sensory function, no focal deficits noted. [] Psychologic: Abnormal judgment, Current Patient Data: Labs: Laboratory Tests Test 07/09/21 12:18 07/09/21 12:30 White Blood Count 5.3 x10^3/uL (4.0-11.0) Red Blood Count 4.63 x10^6/uL (4.30-5.70) Hemoglobin 12.6 g/dL (13.0-17.5) L Hematocrit 38.8 % (39.0-53.0) L Mean Corpuscular Volume 84 fL (79-100) Mean Corpuscular Hemoglobin 27 pg (25-35) Mean Corpuscular Hemoglobin Concent 33 g/dL (31-37) Red Cell Distribution Width 26.1 % (11.5-14.5) H Platelet Count 377 x10^3/uL (140-400) Neutrophils (%) (Auto) 68 % (31-73) Lymphocytes (%) (Auto) 24 % (24-48) Monocytes (%) (Auto) 6 % (0-9) Eosinophils (%) (Auto) 1 % (0-3) Basophils (%) (Auto) 1 % (0-3) Neutrophils # (Auto) 3.6 x10^3uL (1.8-7.7) Lymphocytes # (Auto) 1.3 x10^3/uL (1.0-4.8) Monocytes # (Auto) 0.3 x10^3/uL (0.0-1.1) Eosinophils # (Auto) 0.0 x10^3/uL (0.0-0.7) Basophils # (Auto) 0.1 x10^3/uL (0.0-0.2) Platelet Estimate Increased (ADEQUATE) Polychromasia Present Hypochromasia Present Basophilic Stippling Present Anisocytosis Present Microcytosis Present Target Cells Present Tear Drop Cells Present Ovalocytes Present Schistocytes Few Sodium Level 143 mmol/L (136-145) Potassium Level 4.1 mmol/L (3.5-5.1) Chloride Level 108 mmol/L (98-107) H Carbon Dioxide Level 31 mmol/L (21-32) Anion Gap 4 (6-14) L Blood Urea Nitrogen 11 mg/dL (8-26) Creatinine 1.4 mg/dL (0.7-1.3) H Estimated GFR (Cockcroft-Gault) 68.6 BUN/Creatinine Ratio 8 (6-20) Glucose Level 98 mg/dL (70-99) Calcium Level 8.1 mg/dL (8.5-10.1) L Total Bilirubin 0.2 mg/dL (0.2-1.0) Aspartate Amino Transferase (AST) 35 U/L (15-37) Alanine Aminotransferase (ALT) 40 U/L (16-63) Alkaline Phosphatase 129 U/L (46-116) H Total Protein 7.7 g/dL (6.4-8.2) Albumin 3.5 g/dL (3.4-5.0) Albumin/Globulin Ratio 0.8 (1.0-1.7) L Lipase 201 U/L (73-393) Ethyl Alcohol Level 302 mg/dL (0-10) H Urine Collection Type Unknown Urine Color Yellow Urine Clarity Clear Urine pH 5.5 Urine Specific [place] 1.025 Urine Protein Neg (NEG-TRACE) Urine Glucose (UA) Neg mg/dL (NEG) Urine Ketones (Stick) Neg mg/dL (NEG) Urine Blood Neg (NEG) Urine Nitrite Neg (NEG) Urine Bilirubin Neg (NEG) Urine Urobilinogen Dipstick 0.2 mg/dL (0.2 mg/dL) Urine Leukocyte Esterase Neg (NEG) Urine RBC Rare /HPF (0-2) Urine WBC Rare /HPF (0-4) Urine Squamous Epithelial Cells Few /LPF Urine Bacteria 0 /HPF (0-FEW) Vital Signs: Vital Signs Date Time Temp Pulse Resp B/P (MAP) Pulse Ox O2 Delivery O2 Flow Rate FiO2 07/09/21 12:30 16 07/09/21 11:43 98.0 65 151/89 (109) 100 Room Air EKG: EKG: [] Radiology/Procedures: Radiology/Procedures: []Exam Date: 07/09/2021 12:[address] ABDOMEN+PELVIS WO Indication: Reason: low abdominal pain x1wk, HX DEDE. / Spl. Instructions: / History: . TECHNIQUE: CT examination of the abdomen and pelvis was performed without oral or intravenous contrast. One or more of the following dose reduction techniques were utilized: *Automated exposure control (AEC) *Adjustment of mA and/or kV according to patient size *Use of iterative reconstruction technique *CT scan done according to ALARA, or ALARA/IMAGE GENTLY COMPARISON: February 08, 2020 FINDINGS: Motion artifact limits evaluation slightly. The visualized lung bases are clear. Reported prior cholecystectomy. The liver, spleen, pancreas, and adrenal glands are normal. The kidneys are normal bilaterally. No hydronephrosis or hydroureter is seen. No urinary tract calculi are seen. Urinary bladder is normal in appearance. There is no bowel obstruction or inflammation. No evidence for acute appendicitis. The colon is positioned predominantly on the right side of the abdomen, though this appearance is unchanged since 2019. No significant atherosclerotic calcifications are seen. No lymphadenopathy or ascites is seen. Osseous structures are intact. IMPRESSION: No acute abdominal pathology identified. Normal appearance of the kidneys and bladder. No hydronephrosis or hydroureter. No urinary tract calculi. Electronically signed by: Josemanuel Olsen MD (07/09/2021 1:03 PM) [id number] Heart Score: C/O Chest Pain: No Risk Factors: Risk Factors: DM, Current or recent (<one month) smoker, HTN, HLP, family history of CAD, obesity. Risk Scores: Score 0 - 3: 2.5% MACE over next 6 weeks - Discharge Home Score 4 - 6: 20.3% MACE over next 6 weeks - Admit for Clinical Observation Score 7 - 10: 72.7% MACE over next 6 weeks - Early Invasive Strategies Course & Med Decision Making: Course & Med Decision Making Pertinent Labs and Imaging studies reviewed. (See chart for details) [] 36-year-old male presents with generalized abdominal pain. Patient states that his commander and chief called EMS because he had not shown up to cough this morning. Patient states he was drinking beer and wine all night. Patient is a daily drinker. Work-up in ER consist of CBC, CMP, urinalysis, EKG, CT abdomen pelvis. Patient's pain treated while in the ER. CT is unremarkable. No acute findings. All labs unremarkable. Discussed all results with patient. Advised patient to take ibuprofen at home. Patient is to follow-up with his PCP for further imaging. Discussed return precautions in length. Patient verbalizes understanding of discharge instructions Gerber Disclaimer: Gerber Disclaimer: This electronic medical record was generated, in whole or in part, using a voice recognition dictation system. Departure Departure: Impression: Primary Impression: Generalized abdominal pain Additional Impression: Alcoholism Disposition: HOME / SELF CARE / HOMELESS Condition: STABLE Referrals: YA RODRIGUEZ (PCP) Patient Instructions: Abdominal Pain (Nonspecific) Additional Instructions: He was seen in the emergency room for generalized abdominal pain. All of your labs are unremarkable. CT of your abdomen pelvis was unremarkable. Pain was treated while in the ER. Abstain from alcohol. Drink plenty of fluids. Return to emergency room for worsening symptoms or concerns otherwise you need to fol low-up with your PCP for further management. EMERGENCY DEPARTMENT GENERAL DISCHARGE INSTRUCTIONS Thank you for coming to [facility] (ED) today and trusting us with you care. We trust that you had a positivie experience in our Emergency Department. If you wish to speak to the department management, you may call the director at [phone]. YOUR FOLLOW UP INSTRUCTIONS ARE FOLLOWS: 1. Do you have a private Doctor? If you do not have a private doctor, please ask for a resource list of physicians or clinics that may be able to assist you with follow up care. 2. The Emergency Physician has interpreted your x-rays. The X-Ray specialist will also review them. If there is a change in the findings, you will be notified in 48 hours when at all possible. 3. A lab test or culture has been done, your results will be reviewed and you will be notified if you need a change in treatment. ADDITIONAL INSTRUCTIONS AND INFORMATION: 1. Your care today has been supervised by a physician who is specially trained in emergency care. Many problems require more than one evaluation for a complete diagnosis and treatment. We recommend that you schedule your follow up appointment as recommended to ensure complete treatment of you illness or injury. If you are unable to obtain follow up care and continue to have a problem, or if your condition worsens, we recommend that you return to the ED. 2. We are not able to safely determine your condition over the phone nor are we able to give sound medical advice over the phone. For these safety reasons, if you call for medical advice we will ask you to come to the ED for further evaluation. 3. If you have any questions regarding these discharge instructions please call the ED at [phone]. SAFETY INFORMATION: In the interest of safety, wellness, and injury prevention; we encourage you to wear your sealbelt, if you smoke; quite smoking, and we encourage family to use a protective helmet for bicycling and other sporting events that present an increased risk for head injury. IF YOUR SYMPTOMS WORSEN OR NEW SYMPTOMS DEVELOP, OR YOU HAVE CONCERNS ABOUT YOUR CONDITION; OR IF YOUR CONDITION WORSENS WHILE YOU ARE WAITING FOR YOUR FOLLOW UP APPOINTMENT; EITHER CONTACT YOUR PRIMARY CARE DOCTOR, THE PHYSICIAN WHOSE NAME AND NUMBER YOU WERE GIVEN, OR RETURN TO THE ED IMMEDIATELY. BOO DE LA ROSA APRN Jul 09, 2021 14:10
[2021-07-09 14:13] VITALS: BP 129/68
--- NOTE | 2021-07-10 19:13 | EKG ---
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
== END 2021-07-09 14:24 | disposition home or self-care (01) ==
LOC: ER 11:39
DX: R10.84 Generalized abdominal pain (principal); F10.20 Alcohol dependence, uncomplicated; I10 Essential (primary) hypertension; Z90.49 Acquired absence of other specified parts of digestive tract; Y90.8 Blood alcohol level of 240 mg/100 ml or more
CPT/HCPCS: 36415; 74176; 80053; 81001; 83690; 85025; 93005; 96361; 96374; 99285; G0480; J3010; J7030